=== PATIENT | female | born 1990 | race Caucasian/White ===

== ENCOUNTER 2016-10-21 12:15 | Outpatient (CLI) ==
[2016-01-11 22:24] VITALS: BMI 19.7
[2016-10-21 12:27] LABS: BASOPHILS % (AUTO) 0.4 % (0.0-3.0); EOSINOPHILS # (AUTO) 0.2 K/ul (0.0-0.7); EOSINOPHILS % (AUTO) 1.9 % (0.0-7.0); HEMATOCRIT 36.3 % (37.0-47.0); HEMOGLOBIN 12.1 g/dl (12.0-16.0); IMMATURE GRANULOCYTE % (AUTO) 0.3 % (0.0-5.0); LYMPHOCYTES # (AUTO) 2.3 K/uL (0.60-3.4); LYMPHOCYTES % (AUTO) 28.5 (10.0-50.0); MEAN CORPUSCULAR HEMOGLOBIN 30.6 pg (27.0-31.0); MEAN CORPUSCULAR HGB CONC 33.3 (31.8-35.4); MEAN CORPUSCULAR VOLUME 91.9 fl (81.0-99.0); MONOCYTES # (AUTO) 0.6 K/uL (0.4-2.0); MONOCYTES % (AUTO) 6.9 (0-10); NEUTROPHILS # (AUTO) 4.9 K/ul (2.0-6.9); PLATELET COUNT 359 10^3/uL (140-440); RED BLOOD COUNT 3.95 10^6/ul (4.20-5.40); WHITE BLOOD COUNT 7.93 K/ul (4.6-10.2)
[2016-10-21 12:44] LABS: SERUM PREGNANCY INTERNAL QC INTERNAL QC VALID
[2016-10-21 13:11] LABS: ALBUMIN 3.9 g/dL (3.4-5.0); ALBUMIN/GLOBULIN RATIO 1.22; ANION GAP 12.3; BILIRUBIN,TOTAL 0.24 mg/dL (0.00-1.20); BUN/CREATININE RATIO 10.81; CALCIUM 9.6 mg/dL (8.2-10.2); CREATININE 0.74 mg/dL (0.60-1.30); POTASSIUM 4.3 mmol/L (3.5-5.10); TOTAL PROTEIN 7.1 g/dL (6.4-8.2)
== END 2016-10-21 12:16 | disposition home or self-care (01) ==
LOC: LAB 12:15
PROVIDERS: ATTEND Nurse Practitioner Family
DX: G44.85 Primary stabbing headache (principal); Y63.3 Inadvertent exposure of patient to radiation during medical care
CPT/HCPCS: 36415; 80053; 80061; 84439; 84443; 84703; 85025

== ENCOUNTER 2016-10-22 07:50 | Outpatient (CLI) ==
[2016-01-11 22:24] VITALS: BMI 19.7
--- NOTE | 2016-10-22 10:48 | MRI ---
EXAM: MRI brain without and with IV contrast. DATE: 10/22/2016. HISTORY: Stabbing type headache. Mother had brain aneurysms. TECHNIQUE: Sagittal T1W pre and postcontrast, axial T2W, axial FLAIR, axial T1W pre and postcontras t, axial DWI, coronal T1W postcontrast, and coronal T2W GRE sequences of the brain were obtained usi ng 1.2 Carolyne magnet. CONTRAST: Omniscan - 8 ml IV. COMPARISON: None. FINDINGS: The ventricles, cisterns, and subarachnoid spaces are normal in size and configuration. No midline shift, mass effect or abnormal extra-axial fluid collection is apparent. No acute infarc t, hemorrhage or enhancing neoplasm is identified. No abnormal contrast enhancement is identified i n the brain, meninges or dura. The lu - white matter differentiation is normal. No migration or diverticulation abnormality is identified. The amygdala, hippocampus, and parahippocampal gyri are symmetric and normal bilaterally. The fornices and hypothalamus appear normal. The 7th/8th cranial nerve complexes, cerebellopontine angles, brainstem, and visible cervical spinal cord are normal. There is no cerebellar tonsillar ectopia. The pituitary gland is normal in size and has normal sign al. Corpus callosum is normal in size and configuration. Flow voids are present in the major intra cranial arteries and in the dural venous sinuses. Flow artifacts are identified in the transverse s inuses on the postcontrast axial and coronal images. No aneurysm, AVM or dural venous sinus thrombo sis is apparent. No orbit abnormality is identified. The mastoid air cells are unremarkable. Ther e is extensive mucosal thickening/opacification multiple ethmoid air cells, right side sphenoid sinu s, and right frontal sinus. Lesser degree of mucosal disease is evident in the left frontal sinus a nd maxillary sinuses. Two (20 mm and 15 mm ( retention cysts are noted in the right maxillary sinus . Multiple small lymph nodes are identified within the upper neck bilaterally. The adenoid tissue prominence is observed. No neck mass or lymphadenopathy is detected. No calvarial neoplasm or acut e fracture is evident. IMPRESSIONS: 1. Normal unenhanced/enhanced brain. No acute infarct, hemorrhage, mass or hydrocephalus. 2. Extensive sinusitis (gabe. frontal / ethmoid / sphenoid). 3. Adenoid hypertrophy and upper cervical small lymph nodes. Correlate for recent URI.
== END 2016-10-22 07:51 | disposition home or self-care (01) ==
LOC: RAD 07:50
PROVIDERS: ATTEND Nurse Practitioner Family
DX: G44.85 Primary stabbing headache (principal); Z82.49 Family history of ischemic heart disease and other diseases of the circulatory system

== ENCOUNTER 2017-07-02 09:39 | Outpatient (CLI) ==
[2016-01-11 22:24] VITALS: BMI 19.7
[2017-07-02 09:58] LABS: BASOPHILS % (AUTO) 0.5 % (0.0-3.0); EOSINOPHILS # (AUTO) 0.2 K/ul (0.0-0.7); EOSINOPHILS % (AUTO) 1.8 % (0.0-7.0); HEMATOCRIT 41.2 % (37.0-47.0); HEMOGLOBIN 14.3 g/dl (12.0-16.0); IMMATURE GRANULOCYTE % (AUTO) 0.4 % (0.0-5.0); LYMPHOCYTES # (AUTO) 1.9 K/uL (0.60-3.4); LYMPHOCYTES % (AUTO) 23.1 (10.0-50.0); MEAN CORPUSCULAR HEMOGLOBIN 31.7 pg (27.0-31.0); MEAN CORPUSCULAR HGB CONC 34.7 (31.8-35.4); MEAN CORPUSCULAR VOLUME 91.4 fl (81.0-99.0); MONOCYTES # (AUTO) 0.6 K/uL (0.4-2.0); NEUTROPHILS # (AUTO) 5.5 K/ul (2.0-6.9); NEUTROPHILS % (AUTO) 67.2; PLATELET COUNT 337 10^3/uL (140-440); RED BLOOD COUNT 4.51 10^6/ul (4.20-5.40); WHITE BLOOD COUNT 8.18 K/ul (4.6-10.2)
--- NOTE | 2017-07-02 10:02 | DI ---
EXAM: RIGHT RIBS HISTORY: Chest pain FINDINGS: Right ribs three-view. No displaced rib fracture is identified. No bony destruction, pneu mothorax or soft tissue finding. IMPRESSION: No displaced rib fracture seen.
[2017-07-02 10:18] LABS: SERUM PREGNANCY INTERNAL QC INTERNAL QC VALID
[2017-07-02 11:58] LABS: ALBUMIN 4.1 g/dL (3.4-5.0); ALBUMIN/GLOBULIN RATIO 1.24; ANION GAP 12.9; BILIRUBIN,TOTAL 0.3 mg/dL (0.00-1.20); BUN/CREATININE RATIO 13.51; CALCIUM 9.2 mg/dL (8.2-10.2); CREATININE 0.74 mg/dL (0.60-1.30); POTASSIUM 3.9 mmol/L (3.5-5.10); TOTAL PROTEIN 7.4 g/dL (6.4-8.2)
== END 2017-07-02 09:40 | disposition home or self-care (01) ==
LOC: RAD 09:39
PROVIDERS: ATTEND Nurse Practitioner Family
DX: R25.1 Tremor, unspecified (principal); R07.89 Other chest pain
CPT/HCPCS: 36415; 80053; 84703; 85025

== ENCOUNTER 2017-10-02 22:32 | Emergency (ER) ==
[2017-10-02 22:40] VITALS: BP 113/74; TEMP 99.2; BMI 22.7
[2017-10-02] MEDS ORDERED: ZOFRAN 4 MG/2 ML IVP STA (22:55)
[2017-10-02] MEDS ORDERED: TORADOL IVP STA (22:55)
[2017-10-02] MEDS ORDERED: DECADRON 4 MG/ML SDV IVP STA (22:55)
[2017-10-02] MEDS ORDERED: MORPHINE 2 MG/ML SYRINGE IVP STA (22:55)
[2017-10-02] MEDS ORDERED: ZOSYN 3.375 GM 3.375 GM in SODIUM CHLORIDE 50 ML IV STA (22:56)
[2017-10-02] MEDS ORDERED: CLEOCIN 600 MG in SODIUM CHLORIDE 50 ML IV STA (22:56)
[2017-10-02] MEDS ORDERED: CLEOCIN ONE (23:16)
--- NOTE | 2017-10-03 00:33 | CT ---
EXAM: CT maxillofacial without contrast. HISTORY: Dental abscess. PROCEDURE: Contiguous axial CT images of the face and orbits without contrast with coronal and sagit rena reformats. FINDINGS: There are lucencies surrounding the roots of the right maxillary medial and lateral incisor s, canine, second premolar and first molar and roots of the left maxillary medial incisor, canine and first molar, suspicious for tooth abscesses. There is a lucency surrounding the root of the right ma ndibular first molar, suspicious for a tooth abscess. There is mucosal thickening in the paranasal si nuses. The orbits are normal in appearance. No discrete fluid collection or evidence of soft tissue a bscess. Impression: Lucencies surrounding the roots of multiple teeth as described, suspicious for tooth abs cesses. Paranasal sinusitis.
--- NOTE | 2017-10-03 00:46 | ED.PDOC ---
General ED Provider: Dr. KULWANT CHILDS-ER Chief Complaint: Tooth Problem Stated Complaint: magnus got an abscessed tooth Time Seen by Physician: 22:35 Mode of Arrival: Walk-In Information Source: Patient Exam Limitations: No limitations [facility] and Triage Documentation Reviewed and Agree: Yes Reviewed sepsis parameters & appropriate labs ordered?: Yes System Inflammatory Response Syndrome: Not Applicable Sepsis Protocol: For patient's 13 years and over: Temp is 96.8 and below OR 101 and greater Pulse >90 BPM Resp >20/minute Acutely Altered Mental Status Are patient's symptoms suggestive of a new infection, such as: -Pneumonia -Skin, Soft Tissue -Endocarditis -UTI -Bone, Joint Infection -Implantable Device -Acute Abdominal Infection -Wound Infection -Meningitis -Blood Stream Catheter Infection -Unknown EENT Complaint Exam - Dental/Oral Complaint/Exam Mechanism of Injury: No known trauma Onset/Duration: 3 days Symptoms Are: Still present Timing: Constant Initial Severity: Mild Current Severity: Mild Location: left upper incisor Character: Reports: Dull, Aching Aggravating: Reports: Chewing Alleviating: Reports: None Associated Signs and Symptoms: Reports: Swelling, Discharge Related History: Reports: Previous tooth problem Tooth Findings: Present: Percussion tenderness, Gross decay, Gross caries, Abcess Cervical Lymphadenopathy Present: No Facial Swelling Present: No Bleeding Present: No Oropharynx Findings: Absent: Clots, Active bleeding Septal Hematoma: No Foreign Body Present: No Dysphagia Present: No Drooling Present: No Asymmetrical Tonsillar Swelling Present: No Uvula Midline: Yes Shasta-tonsillar Fluctuence: No Trismus Present: No Palatal Petechiae Present: No Scarlatinaform Rash Present: No Differential Diagnoses: Dental Abcess Review of Systems - Review Of Systems Constitutional: Reports: No symptoms Eyes: Reports: No symptoms Ears, Nose, Mouth, Throat: Reports: Mouth pain, Mouth swelling Respiratory: Reports: No symptoms Cardiac: Reports: No symptoms GI: Reports: No symptoms : Reports: No symptoms Musculoskeletal: Reports: No symptoms Skin: Reports: No symptoms Neurological: Reports: No symptoms Endocrine: Reports: No symptoms Hematologic/Lymphatic: Reports: No symptoms All Other Systems: Reviewed and Negative Past Medical History - Past Medical History Previously Healthy: No Endocrine: Reports: None Cardiovascular: Reports: None Respiratory: Reports: None Hematological: Reports: None Gastrointestinal: Reports: None Genitourinary: Reports: None Neuro/Psych: Reports: None Musculoskeletal: Reports: None Cancer: Reports: None Last Menstrual Period: 08/13/17 - Surgical History General Surgical History: Reports: None - Family History Family History: Reports: None - Social History Smoking Status: Former smoker Hx Substance Use: Yes (MARIJUANA) Alcohol Screening: Occasionally Lives: With family - Immunizations Tetanus Shot up to Date: No Physical Exam - Physical Exam Appearance: Well-appearing Pain Distress: Mild Eyes: MELLISSA, EOMI, Conjunctiva clear ENT: Ears normal, Nose normal, Erythema (noted left upper dental abscess) Neck: Supple Respiratory: Airway patent, Breath sounds clear, Breath sounds equal, Respirations nonlabored Cardiovascular: RRR, Pulses normal, No rub, No murmur GI/: Soft, Nontender, No masses, Bowel sounds normal, No Organomegaly Musculoskeletal: Normal strength, ROM intact, No edema, No calf tenderness Skin: Warm Neurological: Sensation intact Psychiatric: Affect appropriate Re-Evaluation - Re-Evaluation Time of Re-Evaluation: 00:46 Status: Improved Vital Signs Stable: Yes Pain Level: 1 Appearance: NAD Lungs: Clear Skin: Warm and Dry Neuro: Alert and Oriented X3 CV: RRR Critical Care Note - Critical Care Note Total Time (mins): 0 Course - Course Hematology/Chemistry: 10/02/17 23:05 10/02/17 23:05 Orders, Labs, Meds: Lab Review 10/02/17 10/02/17 10/02/17 23:05 23:05 23:05 WBC 14.64 H RBC 3.87 L Hgb 12.4 Hct 34.8 L MCV 89.9 MCH 32.0 H MCHC 35.6 H RDW Coeff of Dalton 13.8 Plt Count 306 Immature Gran % (Auto) 0.3 Neut % (Auto) 64.5 Lymph % (Auto) 24.8 Alfalfa % (Auto) 8.7 Eos % (Auto) 1.4 Baso % (Auto) 0.3 Immature Gran # (Auto) 0.1 Neut # 9.4 H Lymph # 3.6 H Alfalfa # 1.3 Eos # 0.2 Baso # 0.1 Sodium 138 Potassium 3.7 Chloride 105 Carbon Dioxide 21 Anion Gap 15.7 BUN 9 Creatinine 0.75 Estimated GFR (MDRD) 93.00 BUN/Creatinine Ratio 12.00 Glucose 103 Calcium 9.6 Total Bilirubin 0.3 AST 10 L ALT 7 L Alkaline Phosphatase 61 Total Protein 7.3 Albumin 3.7 Globulin 3.6 Albumin/Globulin Ratio 1.03 Serum , Qual Negative Orders Category Date Time Status ED IV/MEDIPORT/POWERPORT .ONCE EMERGENCY 10/02/17 22:55 Active CBC W/ AUTO DIFF Stat LAB 10/02/17 23:05 Completed COMPREHENSIVE METABOLIC PANEL Stat LAB 10/02/17 23:05 Completed SERUM Stat LAB 10/02/17 23:05 Completed 0.9 % Sodium Chloride [Saline Flush] MEDS 10/02/17 22:55 Ordered 1 syr IVF PRN PRN Clindamycin Phosphate Inj [Cleocin] MEDS 10/02/17 23:16 Discontinued 600 mg .ROUTE .STK-MED ONE Clindamycin Phosphate Inj [Cleocin] 600 mg MEDS 10/02/17 22:56 Discontinued 0.9 % Sodium Chloride [Sodium Chloride] 50 ml IV ONCE Dexamethasone 4 mg/ml Inj [Decadron 4 mg/ml Sdv] MEDS 10/02/17 22:55 Discontinued 8 mg IVP ONCE STA Ketorolac Tromethamine [Toradol] MEDS 10/02/17 22:55 Discontinued 30 mg IVP ONCE STA Morphine Sulfate [Morphine 2 mg/ml Syringe] MEDS 10/02/17 22:55 Discontinued 2 mg IVP ONCE STA Ondansetron HCl/Pf [Zofran 4 mg/2 ml] MEDS 10/02/17 22:55 Discontinued 4 mg IVP ONCE STA Piperacillin Sodium/Tazobactam [Zosyn 3.375 gm] 3.375 MEDS 10/02/17 22:56 Discontinued gm 0.9 % Sodium Chloride [Sodium Chloride] [address] MAXILLOFACIAL W/O CONTRAST Stat RADS 10/02/17 22:54 Completed Medications Generic Name Dose Route Start Last Admin Trade Name Freq PRN Reason Stop Dose Admin Sodium Chloride 1 syr 10/02/17 22:55 Saline Flush IVF PRN PRN To flush IV Discontinued Medications Generic Name Dose Route Start Last Admin Trade Name Freq PRN Reason Stop Dose Admin Dexamethasone Sodium Phosphate 8 mg 10/02/17 22:55 10/02/17 23:05 Decadron 4 Mg/Ml Sdv IVP 10/02/17 22:56 8 mg ONCE STA Administration Piperacillin Sod/Tazobactam 50 mls @ 50 mls/hr 10/02/17 22:56 10/02/17 23:13 Sod 3.375 gm/ Sodium Chloride IV 10/02/17 23:55 50 mls/hr ONCE STA Administration Clindamycin Phosphate 600 mg/ 54 mls @ 50 mls/hr 10/02/17 22:56 10/03/17 00: 16 Sodium Chloride IV 10/03/17 00:00 50 mls/hr ONCE STA Administration Ketorolac Tromethamine 30 mg 10/02/17 22:55 10/02/17 23:05 Toradol IVP 10/02/17 22:56 30 mg ONCE STA Administration Morphine Sulfate 2 mg 10/02/17 22:55 10/02/17 23:06 Morphine 2 Mg/Ml Syringe IVP 10/02/17 22:56 2 mg ONCE STA Administration Ondansetron HCl 4 mg 10/02/17 22:55 10/02/17 23:05 Zofran 4 Mg/2 Ml IVP 10/02/17 22:56 4 mg ONCE STA Administration Vital Signs: Temp Pulse Resp BP Pulse Ox 10/02/17 22:33 99.2 F 99 H 20 113/74 98 Departure - Departure Time of Disposition: 00:46 Disposition: HOME SELF-CARE Discharge Problem: Dental abscess Instructions: Dental Abscess (ED) Condition: Good Pt referred to PMD for follow-up: Yes IPMP verified?: No Additional Instructions: medrol dose pack---clindamycin 300mg tid x 7days--norco 7.5mg q 4hrs prn pain # 10--f/u dentist digna Allergies/Adverse Reactions: Allergies No Known Allergies Allergy (Verified 10/02/17 22:40) Disposition Discussed With: Patient
== END 2017-10-03 01:15 | disposition home or self-care (01) ==
LOC: ED 22:32
DX: K04.7 Periapical abscess without sinus (principal)
CPT/HCPCS: 36415; 80053; 84703; 85025; 96365; 96367; 96375; 99283

== ENCOUNTER 2018-10-26 14:17 | Emergency (ER) ==
[2018-10-26 14:22] VITALS: BP 132/76; TEMP 98.3; BMI 21.9
[2018-10-26] MEDS ORDERED: TORADOL IM STA (14:57)
--- NOTE | 2018-10-26 14:58 | ED.PDOC ---
General ED Provider: Dr. KULWANT ALEXIS MD Chief Complaint: Foot Pain/Injury Stated Complaint: twisted my ankle on the trampoline Time Seen by Physician: 14:50 Mode of Arrival: Walk-In Information Source: Patient Exam Limitations: No limitations Primary Care Provider: KNE PROCTOR Nursing and Triage Documentation Reviewed and Agree: Yes Does patient meet sepsis criteria?: No If yes, has appropriate treatment been initiated?: Yes System Inflammatory Response Syndrome: Not Applicable Sepsis Protocol: For patient's 13 years and over: Temp is 96.8 and below OR 101 and greater Pulse >90 BPM Resp >20/minute Acutely Altered Mental Status Are patient's symptoms suggestive of a new infection, such as: -Pneumonia -Skin, Soft Tissue -Endocarditis -UTI -Bone, Joint Infection -Implantable Device -Acute Abdominal Infection -Wound Infection -Meningitis -Blood Stream Catheter Infection -Unknown Review of Systems - Review Of Systems Constitutional: Reports: No symptoms Eyes: Reports: No symptoms Ears, Nose, Mouth, Throat: Reports: No symptoms Respiratory: Reports: No symptoms Cardiac: Reports: No symptoms GI: Reports: No symptoms : Reports: No symptoms Musculoskeletal: Reports: No symptoms Skin: Reports: No symptoms Neurological: Reports: No symptoms Endocrine: Reports: No symptoms Hematologic/Lymphatic: Reports: No symptoms All Other Systems: Reviewed and Negative Past Medical History - Past Medical History Previously Healthy: No Endocrine: Reports: None Cardiovascular: Reports: None Respiratory: Reports: None Hematological: Reports: None Gastrointestinal: Reports: None Genitourinary: Reports: None Neuro/Psych: Reports: None Musculoskeletal: Reports: None Cancer: Reports: None Last Menstrual Period: October 14 2018 - Surgical History General Surgical History: Reports: None - Family History Family History: Reports: None - Social History Smoking Status: Former smoker Hx Substance Use: Yes (MARIJUANA) Alcohol Screening: Occasionally Physical Exam - Physical Exam Appearance: Well-appearing, No pain distress, Well-nourished, Thin Ill-appearing: None Pain Distress: Moderate Eyes: MELLISSA, EOMI, Conjunctiva clear ENT: Ears normal, Nose normal, Oropharynx normal Neck: Supple Respiratory: Airway patent, Breath sounds clear, Breath sounds equal, Respirations nonlabored Cardiovascular: RRR, Pulses normal, No rub, No murmur GI/: Soft, Nontender, No masses, Bowel sounds normal, No Organomegaly Musculoskeletal: Limited ROM, Limited strength, Edema Skin: Warm, Dry, Normal color Neurological: Sensation intact, Motor intact, Reflexes intact, Cranial nerves intact, Alert, Oriented Psychiatric: Affect appropriate, Mood appropriate, Anxious Critical Care Note - Critical Care Note Total Time (mins): 0 Course - Course Orders, Labs, Meds: Orders Category Date Time Status Ketorolac Tromethamine [Toradol] MEDS 10/26/18 14:57 Discontinued 60 mg IM ONCE STA ANKLE, LEFT MIN 3 VIEWS Stat RADS 10/26/18 14:57 Ordered FOOT, LEFT 3 VIEWS Stat RADS 10/26/18 14:57 Ordered Medications Discontinued Medications Generic Name Dose Route Start Last Admin Trade Name Freq PRN Reason Stop Dose Admin Ketorolac Tromethamine 60 mg 10/26/18 14:57 10/26/18 15:13 Toradol IM 10/26/18 14:58 60 mg ONCE STA Administration Vital Signs: Temp Pulse Resp BP Pulse Ox 10/26/18 14:18 98.3 F 82 18 132/76 99 Departure - Departure Time of Disposition: 15:28 Disposition: HOME SELF-CARE Discharge Problem: Left ankle sprain Instructions: Ankle Sprain (ED) Condition: Good Pt referred to PMD for follow-up: Yes IPMP verified?: No Prescriptions: Ketorolac Tromethamine [Toradol] 10 mg PO BID 5 Days #10 tablet Allergies/Adverse Reactions: Allergies No Known Allergies Allergy (Verified 10/26/18 14:22) Home Medications: Ambulatory Orders Ketorolac Tromethamine [Toradol] 10 mg PO BID 5 Days #10 tablet 10/26/18 Transfer Form Completed: No Disposition Discussed With: Patient
--- NOTE | 2018-10-26 15:26 | DI ---
Exam: Three views of the left foot. Comparison: None available. Reason for exam: Twisted foot. FINDINGS: No acute fracture or malalignment. The joint spaces appear well maintained. No unexplain ed calcific soft tissue density or radiopaque retained foreign body. Impression: No acute fracture or dislocation in the left foot.
--- NOTE | 2018-10-26 15:26 | DI ---
Exam: Three views of the left ankle. Comparison: None available. Reason for exam: Twisted foot. FINDINGS: The talar dome is intact. No abnormal widening of the medial or lateral clear space. No unexplained calcific soft tissue density or radiopaque retained foreign body. Impression: No acute fracture or malalignment is seen in the left ankle.
== END 2018-10-26 15:37 | disposition home or self-care (01) ==
LOC: ED 14:17
DX: M25.572 Pain in left ankle and joints of left foot (principal); S93.402A Sprain of unspecified ligament of left ankle, initial encounter
CPT/HCPCS: 96372; 99283